=== PATIENT | male | born 1975 | race Caucasian/White ===

== ENCOUNTER 2020-09-24 12:00 | Inpatient (IN) | payer OTHER ==
[~2020-09-24] VITALS: Ht 177.8 cm; Wt 90.7 kg
[~2020-09-24 12:00] MED LIST: ALLOPURINOL100 MG; INTESTINEX680 MG PO; SIMVASTATIN20 MG
--- NOTE | 2020-09-24 12:21 | NUR ---
PTE ALERTA, ORIENTADO POR MELY REFIERE DOLOR ABDOMINAL YAHAIRA DESDE RIP EN LA NOCHE. PTE REFIERE TENER HISTORIAL DE PANCREATITIS. SE OBSERVA PTE SUDOROSO S/V ESTABLES. SE LE REALIZA DEXTRO A PTE 175 Y SE COLOCA EN AREA DE OBSERVACION PARA SER EVALUADO.
--- NOTE | 2020-09-24 14:15 | NUR ---
PACIENTE ES EVALUADO POR DR. GUEVARA QUIEN ORDENA TRATAMIENTO. SE EDUCA A PTE SOBRE ORDENES MEDICAS Y REFIERE COMPRENDER. SE CANALIZA Y SE COLECTAN MUESTRAS DE LABORATORIO BAJO MEDIDAS ASEPTICAS Y SE ADMINISTRAN MEDICAMENTOS KARLEE ORDEN MEDICA LOS CUALES PTE AL MOMENTO NO PRESENTA REACCION ADVERSA.
[2020-09-30] MEDS ORDERED: LISINOPRIL20 MG (16:29)
== END 2020-10-27 21:39 | disposition home or self-care (01) | DRG 439 ==
LOC: ER 12:00 → MEDJ 20:20
PROVIDERS: ADMIT Internal Medicine; ATTEND Internal Medicine
PROC: 0W9B3ZX Drainage of Left Pleural Cavity, Percutaneous Approach, Diagnostic (ICD-10-PCS; principal; 2020-10-13)
DX: K85.81 Other acute pancreatitis with uninfected necrosis (principal); Q45.3 Other congenital malformations of pancreas and pancreatic duct; J98.11 Atelectasis; J90 Pleural effusion, not elsewhere classified; R18.8 Other ascites; K86.3 Pseudocyst of pancreas; I10 Essential (primary) hypertension; R09.02 Hypoxemia; Z20.822 Contact with and (suspected) exposure to COVID-19
CPT/HCPCS: 74182